=== PATIENT | female | born 1965 | race Caucasian/White ===

== ENCOUNTER → 2018-03-26 | Outpatient (CLI) | payer OTHER ==
--- NOTE | 2018-03-27 00:12 | RAD ---
Pelvic ultrasound to include transabdominal and transvaginal imaging 03/26/2018 CLINICAL HISTORY: Vaginal bleeding since March 02 of this year. TECHNIQUE: Using the distended urinary bladder as a sonographic window, a real-time ultrasound examination of the pelvis was performed. Additionally in an attempt to better evaluate the uterus and adnexa, a transvaginal ultrasound study was performed. Multiple images were obtained. FINDINGS: The uterus is normal in size. It measures 9.0 x 5.3 x 4.2 cm in longitudinal, transverse and AP dimensions. A oval-shaped hypoechoic mass is seen projecting anteriorly to the left of midline from the uterus which measures 1.9 cm in greatest diameter. This is consistent with a fibroid. No additional abnormality of the uterus is seen. The endometrial canal measures 1.2 cm in thickness which is within normal limits. Both ovaries are within normal limits in size. The right ovary measures 2.5 x 1.8 x 1.6 cm in size. Left ovary measures 4.3 x 2.7 x 2.1 cm in size. Within the left ovary a oval-shaped anechoic structure is seen which measures 2.6 cm in greatest diameter. This is consistent with a simple cyst. No adnexal mass is seen. A small amount of free fluid is noted. IMPRESSION: 1. 1.9 cm uterine fibroid. 2. 2.6 cm simple cyst is seen involving the left ovary. 3. Small amount of free fluid is seen within the pelvis. Electronically signed by: Fito Jiménez MD (03/27/2018 12:08 AM) [facility]
== END | disposition home or self-care (01) ==
LOC: US 13:39
PROVIDERS: ATTEND Family Medicine
DX: D25.9 Leiomyoma of uterus, unspecified (principal); N83.292 Other ovarian cyst, left side
CPT/HCPCS: 76830; 76856